=== PATIENT | female | born 1960 | race Caucasian/White ===

== ENCOUNTER → 2017-07-27 | Outpatient (POV) | payer MEDICARE, OTHER, MEDICAID, SELFPAY | PROVIDERS: Visit Provider Podiatrist ==

== ENCOUNTER 2017-08-08 13:00 | Outpatient (RCR) | payer MEDICARE, OTHER, MEDICAID, SELFPAY | END 2017-08-17 | LOC: PT 13:00 | PROVIDERS: PCP Internal Medicine Adolescent Medicine; Visit Provider Internal Medicine Adolescent Medicine | DX: R29.6 Repeated falls (principal); R27.0 Ataxia, unspecified; M62.81 Muscle weakness (generalized) | CPT/HCPCS: G8978; G8979; G8980; 97110; 97112; 97140; 97163 ==

== ENCOUNTER → 2017-08-10 | Outpatient (POV) | payer MEDICARE, OTHER, MEDICAID, SELFPAY | PROVIDERS: Visit Provider Podiatrist ==

== ENCOUNTER → 2017-09-14 14:21 | Outpatient (CLI) | payer MEDICARE, OTHER, MEDICAID, SELFPAY ==
[2017-09-14 15:03] LABS: Basophils # 0.1 K/mm3 (0-0.2); Basophils % 1.4 % (0.1-2.0); Eosinophils # 0.1 K/mm3 (0.0-0.4); Eosinophils % 2.5 % (0.1-12.0); Hematocrit 48.6 % (37.0-47.0); Hemoglobin 15.4 g/dL (12.2-16.2); Lymphocytes % 34.7 K/mm3 (10-50); Mean Corpuscular HGB Conc 31.7 g/dL (31.8-35.4); Mean Corpuscular Hemoglobin 31.7 pg (27.0-31.2); Mean Corpuscular Volume 99.8 fl (81-99); Mean Platelet Volume 8.4 fl (7.4-10.4); Monocytes # 0.2 K/mm3 (0.1-1.0); Monocytes % 4.1 % (1.7-9.3); Neutrophils # 3.4 K/mm3 (1.8-7.8); Neutrophils % 57.3 % (37.0-80.0); Platelet Count 229 K/mm3 (142-424); Red Blood Count 4.87 M/mm3 (4.20-5.40); Red Cell Distribution Width 14.2 % (11.5-17.5); White Blood Count 5.9 K/mm3 (4.8-10.8)
[2017-09-14 17:27] LABS: Alanine Aminotransferase 33 U/L (12-78); Albumin Level 3.7 gm/dL (3.4-5.0); Alkaline Phosphatase 115 U/L (46-116); Anion Gap 10.4 mEq/L (5-15); Aspartate Amino Transferase 30 U/L (15-37); Bilirubin,Total 0.6 mg/dL (0.2-1.0); Blood Urea Nitrogen 16 mg/dL (7-18); Calcium 9.1 mg/dL (8.5-10.1); Carbon Dioxide 31 mmol/L (21.0-32.0); Chloride 106 mmol/L (98-107); Chol/HDL Ratio 3.5 (1-3.5); Cholesterol 181 mg/dL (140-200); Creatinine,Serum 0.75 mg/dL (0.55-1.02); Estimated Glomerular Filt Rate 79 ml/min (>60); Free Thyroxine Index 2.2 ug/dL (5.93-13.13); GFR (African American) 96 ML/MIN (>60); Globulin 3.6 gm/dl (1.3-3.2); Glucose 90 mg/dL (74-106); HDL Cholesterol 52 mg/dL (29-89); LDL Cholesterol 108 mg/dL (0-130); Potassium 4.4 mmoL/L (3.5-5.1); Sodium 143 mmol/L (136-145); T4 (Thyroxine) 6.5 ug/dl (4.7-13.3); Thyroid Stimulating Hormone 1.65 uIU/ml (0.358-3.740); Total Protein,Serum 7.3 gm/dL (6.4-8.2); Triglycerides 105 mg/dL (30-200); Triiodothryronine (T3) Uptake 34 % (31-39); VLDL Cholesterol 21 mg/dL (0-40)
== END ==
PROVIDERS: PCP Internal Medicine Adolescent Medicine; Visit Provider Internal Medicine Adolescent Medicine
DX: E78.5 Hyperlipidemia, unspecified (principal); E03.9 Hypothyroidism, unspecified; G25.0 Essential tremor
CPT/HCPCS: 36415; 80053; 80061; 84436; 84443; 84479; 85025

== ENCOUNTER 2017-10-05 14:00 | Outpatient (RCR) | payer MEDICARE, OTHER, MEDICAID, SELFPAY | END 2017-10-05 14:01 | disposition home or self-care (01) | LOC: PT 14:00 | PROVIDERS: PCP Internal Medicine Adolescent Medicine; Visit Provider Internal Medicine Adolescent Medicine | DX: R29.6 Repeated falls (principal); R27.0 Ataxia, unspecified; M62.81 Muscle weakness (generalized) | CPT/HCPCS: 97110; 97112; 97140 ==

== ENCOUNTER → 2018-01-09 09:38 | Outpatient (CLI) | payer MEDICARE, OTHER, MEDICAID, SELFPAY ==
--- NOTE | 2018-01-09 09:41 | US_ITS ---
US abdomen complete HISTORY: Abdominal pain ITS.REASON: ULCERATIVE COLITIS, DOWN SYNDROME, AUNTOIMMUNE HEPATITIS ORDERING PHYSICIAN: Luciana Rees PATIENT AGE: 57 years COMPARISON: None FINDINGS: PANCREAS:Unremarkable. No obvious mass or abnormal fluid collection. No ductal dilatation LIVER:No focal liver lesions demonstrated. Homogeneous echogenicity. No intrahepatic biliary ductal dilatation evident. There is appropriate direction of blood flow within the portal vein which does not appear dilated RIGHT KIDNEY:Unremarkable. Normal size and echogenicity. No hydronephrosis LEFT KIDNEY:Unremarkable. No hydronephrosis. Normal size and echogenicity. GALLBLADDER:No gallstones, gallbladder wall thickening, pericholecystic fluid, or biliary dilatation. AORTA:No evidence of aneurysmal dilatation. SPLEEN:Unremarkable. Normal size and echogenicity ASCITES:None demonstrated. IMPRESSION: Unremarkable abdominal ultrasound
== END ==
PROVIDERS: PCP Internal Medicine Adolescent Medicine; Visit Provider Internal Medicine Gastroenterology
DX: K51.90 Ulcerative colitis, unspecified, without complications (principal); K75.4 Autoimmune hepatitis; Q90.9 Down syndrome, unspecified
CPT/HCPCS: 76700

== ENCOUNTER → 2018-01-29 10:04 | Outpatient (CLI) | payer MEDICARE, OTHER, MEDICAID, SELFPAY | PROVIDERS: PCP Internal Medicine Adolescent Medicine; Visit Provider Internal Medicine Adolescent Medicine | DX: R40.4 Transient alteration of awareness (principal) | CPT/HCPCS: 95816 ==

== ENCOUNTER 2018-02-23 11:26 | Inpatient (IN) ==
[2018-02-23 12:25] LABS: Basophils % 0.3 % (0.1-2.0); Eosinophils % 0.1 % (0.1-12.0); Hematocrit 43.1 % (37.0-47.0); Hemoglobin 14.9 g/dL (12.2-16.2); Lymphocytes # 1.1 K/mm3 (0.7-4.5); Lymphocytes % 14.7 K/mm3 (10-50); Mean Corpuscular HGB Conc 34.7 g/dL (31.8-35.4); Mean Corpuscular Hemoglobin 34.7 pg (27.0-31.2); Mean Corpuscular Volume 100.2 fl (81-99); Mean Platelet Volume 8.1 fl (7.4-10.4); Monocytes # 0.3 K/mm3 (0.1-1.0); Neutrophils # 6.1 K/mm3 (1.8-7.8); Neutrophils % 80.8 % (37.0-80.0); Platelet Count 234 K/mm3 (142-424); Red Cell Distribution Width 13.2 % (11.5-17.5); White Blood Count 7.6 K/mm3 (4.8-10.8)
[2018-02-23 12:39] LABS: Alanine Aminotransferase 45 U/L (12-78); Albumin Level 3.2 gm/dL (3.4-5.0); Albumin/Globulin Ratio 0.7 (1.1-1.8); Alkaline Phosphatase 163 U/L (46-116); Anion Gap 10.1 mEq/L (5-15); Aspartate Amino Transferase 24 U/L (15-37); Bilirubin,Total 0.6 mg/dL (0.2-1.0); Blood Urea Nitrogen 17 mg/dL (7-18); Calcium 8.9 mg/dL (8.5-10.1); Carbon Dioxide 29 mmol/L (21.0-32.0); Chloride 105 mmol/L (98-107); Globulin 4.3 gm/dl (1.3-3.2); Glucose 133 mg/dL (74-106); Potassium 4.1 mmoL/L (3.5-5.1); Sodium 140 mmol/L (136-145); Total Protein,Serum 7.5 gm/dL (6.4-8.2)
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
[2018-02-23 14:21] LABS: Microscopic, Urine URINE MICROSCOPIC (MICROSCOPIC)
[2018-02-23 14:35] LABS: Appearance,Urine SL CLOUDY (Clear); Bilirubin,Urine Negative (Negative); Blood, Urine Negative (Negative); Color,Urine YELLOW (Yellow); Glucose,Urine (UA) Negative (Negative); Ketones,Urine Negative (Negative); Leukocyte Esterase,Urine Negative (Negative); PH,Urine 6.5 (5.0-8.5); Protein,Urine Negative (Negative); Specific Gravity, Urine <= 1.005 (1.005-1.030); Urobilinogen,Urine 0.2 EU/dl (0.2)
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
[2018-02-23 15:00] LABS: Bacteria,Urine Trace /lpf; Squamous Epithelial Cell,Urine Occasional #/hpf (0-5); WBC,Urine Occasional #/hpf (0-3)
--- NOTE | 2018-02-23 16:53 | Operative Note ---
Date of procedure: 02/23/18 Pre-op Diagnosis:: Small bowel obstruction Post-op Diagnosis:: Same Procedure performed:: Exploratory laparotomy with extensive adhesiolysis Surgeon:: Jean Tidwell MD AURICULAR THERAPIST:: Edi Faulkner Anesthesia: GETA Estimated blood loss (mL): 25 Operative findings:: Dense adhesions with "volvulus-type" defect along distal small bowel (distal small bowel essentially "wrapped" around adhesion) Distal small bowel with "inflammatory-like" discoloration No sign of definitive ischemia Affected small bowel continued to show peristalsis and had palpable pulse Operative note:: After informed consent was obtained, the patient was taken to the operating room and placed in the supine position. General anesthesia was induced and her abdomen was prepped and draped in a sterile fashion. A midline laparotomy incision was made with scalpel. A combination of scalpel, blunt dissection, and electrocautery was utilized to transect through the deeper subcutaneous tissue. The fascia was entered just below the umbilicus. Careful evaluation revealed distended small bowel. The small bowel was elevated. An area of distal small bowel was essentially "wrapped around" an adhesive band creating a "volvulus--type" defect. The affected small bowel showed some inflammatory changes of the serosa, but no ischemic type changes were seen. Peristalsis was noted. Palpable pulse noted. Complex/dense adhesions throughout the abdominal cavity were noted. The adhesions were between small bowel/small bowel, small bowel/colon, small bowel/abdominal wall, and small bowel/omentum. Complicated adhesio lysis completed by way of electrocautery, Metzenbaum scissor dissection , and blunt dissection. The patient has had 2 prior small bowel anastomoses and these were deemed viable. The most distal anastomosis was at the proximal margin of the affected small bowel. The small bowel was run completely and no ischemic type changes were noted. No sign of perforation noted. Fascia was closed with #1 Novafil in a running manner. Colbert were utilized to close skin and a sterile dressing was applied. Condition: stable Disposition: PACU Specimens:: None Complications:: No immediate
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
--- NOTE | 2018-02-23 17:45 | Progress Note ---
[facility] Anesthesia Record Part II Discharge Time: 17:35 Destination: 2nd floor PACU nurse assessment reviewed?: Yes Patient Condition:: Good Anesthesia Complications:: None
--- NOTE | 2018-02-23 17:45 | Progress Note ---
[facility] Anesthesia Record Part I Intake, IV Amount: 1,400 Estimated blood loss (mL): 25 Urine output (mL): 300 Blood Pressure: 131/54 SaO2: 100 Pulse Rate: 77 Respiratory Rate: 16 Temperature: 97.4 F Patient is:: Drowsy, Stable Stable to PACU at:: 17:05
[2018-02-24 06:39] LABS: Basophils % 0.3 % (0.1-2.0); Eosinophils % 0.2 % (0.1-12.0); Hematocrit 34.6 % (37.0-47.0); Lymphocytes # 1.4 K/mm3 (0.7-4.5); Lymphocytes % 17.8 K/mm3 (10-50); Mean Corpuscular HGB Conc 35.4 g/dL (31.8-35.4); Mean Corpuscular Volume 101.8 fl (81-99); Mean Platelet Volume 8.4 fl (7.4-10.4); Monocytes # 0.4 K/mm3 (0.1-1.0); Monocytes % 4.9 % (1.7-9.3); Neutrophils # 5.8 K/mm3 (1.8-7.8); Neutrophils % 76.7 % (37.0-80.0); Platelet Count 171 K/mm3 (142-424); Red Cell Distribution Width 13.4 % (11.5-17.5); White Blood Count 7.6 K/mm3 (4.8-10.8)
[2018-02-24 06:41] LABS: Hemoglobin 12.2 g/dL (12.2-16.2)
--- NOTE | 2018-02-24 06:46 | Progress Note ---
Internal Medicine - PN: Subj *Date: 02/24/18 *Time: 06:46 Interval history: Patient has done well overnight. After some low blood pressure postoperatively which was treated with a fluid bolus and maintenance fluids at 150 mL's per hour patient's blood pressure is improved. She has received pain medication overnight. For the most part she has slept since surgery. Exam Vital signs and Labs for Last 24 Hours: Temp Pulse Resp BP Pulse Ox 98.1 F 56 L 16 84/44 98 02/24/18 05:00 02/24/18 05:30 02/24/18 05:30 02/24/18 05:30 02/24/18 05:30 Laboratory Results - last 24 hr 02/23/18 11:41: Urine Color Yellow, Urine Appearance Sl cloudy, Urine pH 6.5, Ur Specific [place] <= 1.005, Urine Protein Negative, Urine Glucose (UA) Negative, Urine Ketones Negative, Urine Blood Negative, Urine Nitrate Negative, Urine Bilirubin Negative, Urine Urobilinogen 0.2, Ur Leukocyte Esterase Negative , Urine WBC Occasional, Ur Squamous Epith Cells Occasional, Urine Bacteria Trace 02/23/18 12:15: WBC 7.6, RBC 4.30, Hgb 14.9, Hct 43.1, MCV 100.2 H, MCH 34.7 H, MCHC 34.7, RDW 13.2, Plt Count 234, MPV 8.1, Neut % (Auto) 80.8 H, Lymph % (Auto ) 14.7, [place] % (Auto) 4.0, Eos % (Auto) 0.1, Baso % (Auto) 0.3, Neut # (Auto) 6.1, Lymph # (Auto) 1.1, [place] # (Auto) 0.3, Eos # (Auto) 0.0, Baso # (Auto) 0.0 02/23/18 12:15: Sodium 140, Potassium 4.1, Chloride 105, Carbon Dioxide 29, Anion Gap 10.1, BUN 17, Creatinine 0.90, Estimated GFR 64, Est GFR ( Amer ) 78, Glucose 133 H, Calcium 8.9, Total Bilirubin 0.6, AST 24, ALT 45, Alkaline Phosphatase 163 H, Total Protein 7.5, Albumin 3.2 L, Globulin 4.3 H, Albumin/ Globulin Ratio 0.7 L 02/23/18 12:15: Lactic Acid 1.8 02/24/18 06:05: WBC 7.6, RBC 3.40 L, Hgb 12.2 D, Hct 34.6 L, MCV 101.8 H, MCH 36.0 H, MCHC 35.4, RDW 13.4, Plt Count 171 D, MPV 8.4, Neut % (Auto) 76.7, Lymph % (Auto) 17.8, [place] % (Auto) 4.9, Eos % (Auto) 0.2, Baso % (Auto) 0.3, Neut # (Auto) 5.8, Lymph # (Auto) 1.4, [place] # (Auto) 0.4, Eos # (Auto) 0.0, Baso # (Auto) 0.0 I & O for Last 24 hours: Intake & Output 02/21/18 02/22/18 02/23/18 02/24/18 11:59 11:59 11:59 11:59 Intake Total 1400 / 1400 Output Total 900 / 900 Balance 500 / 500 Weight 140 lb 3 oz Narrative: Patient appears comfortable and in no distress. During examination she began to awaken and open her eyes. Lungs were clear. Heart had a regular rate and rhythm. Abdomen was soft, bowel sounds are absent Assessment and Plan (1) Gastroenteritis Current visit: Yes Status: Acute Category: Medical Code(s): K52.9 - Noninfective gastroenteritis and colitis, unspecified (2) Lower abdominal pain Current visit: Yes Status: Acute Category: Medical Code(s): R10.30 - Lower abdominal pain, unspecified (3) Down syndrome Current visit: Yes Status: Chronic Category: Medical Code(s): Q90.9 - Down syndrome, unspecified (4) Small bowel volvulus Current visit: Yes Status: Acute Category: Surgical Code(s): K56.2 - Volvulus - Assessment and plan all Dx Assessment and Plan for all problems:: No change in care at this time. Continue postoperative management.
[2018-02-24 06:50] LABS: Anion Gap 7.3 mEq/L (5-15); Potassium 3.3 mmoL/L (3.5-5.1)
[2018-02-24 06:57] LABS: Calcium 7.7 mg/dL (8.5-10.1)
--- NOTE | 2018-02-24 08:22 | Progress Note ---
Subjective Patient reports: other (resting) Exam Vital signs and Labs for Last 24 Hours: Temp Pulse Resp BP Pulse Ox 98.3 F 54 L 18 95/48 100 02/24/18 08:00 02/24/18 08:00 02/24/18 08:00 02/24/18 08:00 02/24/18 08:00 Laboratory Results - last 24 hr 02/23/18 11:41: Urine Color Yellow, Urine Appearance Sl cloudy, Urine pH 6.5, Ur Specific [place] <= 1.005, Urine Protein Negative, Urine Glucose (UA) Negative, Urine Ketones Negative, Urine Blood Negative, Urine Nitrate Negative, Urine Bilirubin Negative, Urine Urobilinogen 0.2, Ur Leukocyte Esterase Negative , Urine WBC Occasional, Ur Squamous Epith Cells Occasional, Urine Bacteria Trace 02/23/18 12:15: WBC 7.6, RBC 4.30, Hgb 14.9, Hct 43.1, MCV 100.2 H, MCH 34.7 H, MCHC 34.7, RDW 13.2, Plt Count 234, MPV 8.1, Neut % (Auto) 80.8 H, Lymph % (Auto ) 14.7, [place] % (Auto) 4.0, Eos % (Auto) 0.1, Baso % (Auto) 0.3, Neut # (Auto) 6.1, Lymph # (Auto) 1.1, [place] # (Auto) 0.3, Eos # (Auto) 0.0, Baso # (Auto) 0.0 02/23/18 12:15: Sodium 140, Potassium 4.1, Chloride 105, Carbon Dioxide 29, Anion Gap 10.1, BUN 17, Creatinine 0.90, Estimated GFR 64, Est GFR ( Amer ) 78, Glucose 133 H, Calcium 8.9, Total Bilirubin 0.6, AST 24, ALT 45, Alkaline Phosphatase 163 H, Total Protein 7.5, Albumin 3.2 L, Globulin 4.3 H, Albumin/ Globulin Ratio 0.7 L 02/23/18 12:15: Lactic Acid 1.8 02/24/18 06:05: WBC 7.6, RBC 3.40 L, Hgb 12.2 D, Hct 34.6 L, MCV 101.8 H, MCH 36.0 H, MCHC 35.4, RDW 13.4, Plt Count 171 D, MPV 8.4, Neut % (Auto) 76.7, Lymph % (Auto) 17.8, [place] % (Auto) 4.9, Eos % (Auto) 0.2, Baso % (Auto) 0.3, Neut # (Auto) 5.8, Lymph # (Auto) 1.4, [place] # (Auto) 0.4, Eos # (Auto) 0.0, Baso # (Auto) 0.0 02/24/18 06:05: Sodium 147 H, Potassium 3.3 L, Chloride 113 H, Carbon Dioxide 30 , Anion Gap 7.3, BUN 13, Creatinine 0.70 D, Estimated Creat Clear 88, Estimated GFR 86, Est GFR ( Amer) 104 D, Glucose 94 D, Calcium 7.7 L D 02/24/18 06:05: Lactic Acid 0.6 I & O for Last 24 hours: Intake & Output 02/21/18 02/22/18 02/23/18 02/24/18 11:59 11:59 11:59 11:59 Intake Total 3567 / 3567 Output Total 1875 / 1875 Balance 1692 / 1692 Weight 140 lb 3 oz Narrative: required 1L bolus overnight due to low SBP - Constitutional no acute distress - *Routine Respiratory Exam Absent: respiratory distress - *Routine Abdominal Exam Present: soft Comments: dressing intact no erythema Progress Note: A&P (1) Gastroenteritis Status: Acute Current Visit: Yes (2) Lower abdominal pain Status: Acute Current Visit: Yes (3) Down syndrome Status: Chronic Current Visit: Yes (4) Small bowel volvulus Status: Acute Assessment and plan: Overall, doing well s/p ex-lap with adhesiolysis NG for now Continue spivey for now due to need for accurate I&Os PT consult Current Visit: Yes
--- NOTE | 2018-02-24 14:01 | Pharmacy Consult Notes ---
[facility] Pharmacy VTE Monitoring - Patient Demographics Admission date: 02/24/18 Report Date: 02/24/18 Time: 14:01 Allergies/Adverse Reactions: Patient Allergies minocycline [MINOCYCLINE] Allergy (Unknown, Verified 02/23/18 21:13) Height: 1.52 m Weight: 63.588 kg Patient Problems: Current Active Problems Gastroenteritis (Acute) Lower abdominal pain (Acute) Down syndrome (Chronic) Small bowel volvulus (Acute) - VTE Risk Labs: VTE Related Lab Results Hgb 12.2 g/dL (12.2-16.2) D 02/24/18 06:05 Hct 34.6 % (37.0-47.0) L 02/24/18 06:05 Plt Count 171 K/mm3 (142-424) D 02/24/18 06:05 BUN 13 mg/dL (7-18) 02/24/18 06:05 Creatinine 0.70 mg/dL (0.55-1.02) D 02/24/18 06:05 Estimated Creat Clear 88 mL/min (0-300) 02/24/18 06:05 Was VTE Risk Assessment Performed: Yes VTE Score: 3 VTE Risk Level: Low Risk - Prophylaxis Types of VTE Prophylaxis: TEDS Thigh High, TEDS Knee High (GODFREY HOSE ORDERED) Location of Applied Device: Bilateral Lower Extremeties
--- NOTE | 2018-02-25 06:23 | Progress Note ---
Subjective Patient reports: other (resting) Exam Vital signs and Labs for Last 24 Hours: Temp Pulse Resp BP Pulse Ox 97.6 F 52 L 18 102/53 92 L 02/25/18 04:00 02/25/18 04:00 02/25/18 04:00 02/25/18 04:00 02/25/18 04:00 Laboratory Results - last 24 hr 02/24/18 06:05: WBC 7.6, RBC 3.40 L, Hgb 12.2 D, Hct 34.6 L, MCV 101.8 H, MCH 36.0 H, MCHC 35.4, RDW 13.4, Plt Count 171 D, MPV 8.4, Neut % (Auto) 76.7, Lymph % (Auto) 17.8, [place] % (Auto) 4.9, Eos % (Auto) 0.2, Baso % (Auto) 0.3, Neut # (Auto) 5.8, Lymph # (Auto) 1.4, [place] # (Auto) 0.4, Eos # (Auto) 0.0, Baso # (Auto) 0.0 02/24/18 06:05: Sodium 147 H, Potassium 3.3 L, Chloride 113 H, Carbon Dioxide 30 , Anion Gap 7.3, BUN 13, Creatinine 0.70 D, Estimated Creat Clear 88, Estimated GFR 86, Est GFR ( Amer) 104 D, Glucose 94 D, Calcium 7.7 L D 02/24/18 06:05: Lactic Acid 0.6 I & O for Last 24 hours: Intake & Output 02/22/18 02/23/18 02/24/18 02/25/18 11:59 11:59 11:59 11:59 Intake Total 3567 / 3567 2783 / 2783 Output Total 1875 / 1875 600 / 600 Balance 1692 / 1692 2183 / 2183 Weight 140 lb 3 oz 140 lb 3 oz - Constitutional no acute distress - *Routine Respiratory Exam Absent: respiratory distress Progress Note: A&P (1) Gastroenteritis Status: Acute Current Visit: Yes (2) Lower abdominal pain Status: Acute Current Visit: Yes (3) Down syndrome Status: Chronic Current Visit: Yes (4) Small bowel volvulus Status: Acute Assessment and plan: overall, doing fairly well POD2 s/p ex-lap with CRISTHIAN f/u AM labs PT consult pending continue NG for now d/c allyssa Current Visit: Yes
[2018-02-25 06:27] LABS: Basophils # 0.1 K/mm3 (0-0.2); Basophils % 0.7 % (0.1-2.0); Eosinophils % 0.6 % (0.1-12.0); Hematocrit 40.2 % (37.0-47.0); Hemoglobin 12.3 g/dL (12.2-16.2); Lymphocytes # 1.2 K/mm3 (0.7-4.5); Mean Corpuscular HGB Conc 30.5 g/dL (31.8-35.4); Mean Corpuscular Hemoglobin 31.2 pg (27.0-31.2); Mean Corpuscular Volume 102.3 fl (81-99); Mean Platelet Volume 8.3 fl (7.4-10.4); Monocytes # 0.5 K/mm3 (0.1-1.0); Monocytes % 6.4 % (1.7-9.3); Neutrophils # 5.4 K/mm3 (1.8-7.8); Neutrophils % 75.3 % (37.0-80.0); Platelet Count 164 K/mm3 (142-424); Red Blood Count 3.93 M/mm3 (4.20-5.40); Red Cell Distribution Width 13.1 % (11.5-17.5); White Blood Count 7.1 K/mm3 (4.8-10.8)
[2018-02-25 06:36] LABS: Anion Gap 7.5 mEq/L (5-15); Calcium 7.9 mg/dL (8.5-10.1); Potassium 3.5 mmoL/L (3.5-5.1)
--- NOTE | 2018-02-25 08:36 | Progress Note ---
Internal Medicine - PN: Subj *Date: 02/25/18 *Time: 08:34 Interval history: Events of yesterday noted vis--vis surgery and NG tube placement. Some concern about coughing this morning. Will he is concerned about mobility issues. Brewer catheter was removed yesterday. NG tube still in place. Discussed case personally with surgery service. Exam Vital signs and Labs for Last 24 Hours: Temp Pulse Resp BP Pulse Ox 97.7 F 56 L 18 127/71 95 02/25/18 08:00 02/25/18 08:00 02/25/18 08:00 02/25/18 08:00 02/25/18 08:00 Laboratory Results - last 24 hr 02/25/18 05:55: WBC 7.1, RBC 3.93 L, Hgb 12.3, Hct 40.2, MCV 102.3 H, MCH 31.2, MCHC 30.5 L, RDW 13.1, Plt Count 164, MPV 8.3, Neut % (Auto) 75.3, Lymph % (Auto ) 17.0, [place] % (Auto) 6.4, Eos % (Auto) 0.6, Baso % (Auto) 0.7, Neut # (Auto) 5.4, Lymph # (Auto) 1.2, [place] # (Auto) 0.5, Eos # (Auto) 0.0, Baso # (Auto) 0.1 02/25/18 05:55: Sodium 143, Potassium 3.5, Chloride 112 H, Carbon Dioxide 27, Anion Gap 7.5, BUN 7 D, Creatinine 0.64, Estimated Creat Clear 96, Estimated GFR 95, Est GFR ( Amer) 115, Glucose 123 H D, Calcium 7.9 L I & O for Last 24 hours: Intake & Output 02/22/18 02/23/18 02/24/18 02/25/18 11:59 11:59 11:59 11:59 Intake Total 3567 / 3567 2783 / 2783 Output Total 1875 / 1875 700 / 700 Balance 1692 / 1692 2083 / 2083 Weight 140 lb 3 oz 140 lb 3 oz Narrative: Patient is sleeping, when awakened is cooperative, nonverbal. NG tube in left nostril. Lungs in the anterior daugherty are clear, excellent air movement, posterior lung daugherty are also clear. Heart rate regular. Abdominal exam deferred to surgery. Assessment and Plan (1) Gastroenteritis Current visit: Yes Status: Acute Category: Medical Code(s): K52.9 - Noninfective gastroenteritis and colitis, unspecified (2) Lower abdominal pain Current visit: Yes Status: Acute Category: Medical Code(s): R10.30 - Lower abdominal pain, unspecified (3) Down syndrome Current visit: Yes Status: Chronic Category: Medical Code(s): Q90.9 - Down syndrome, unspecified (4) Small bowel volvulus Current visit: Yes Status: Acute Category: Surgical Code(s): K56.2 - Volvulus - Assessment and plan all Dx Assessment and Plan for all problems:: Surgical status reviewed. Continue current surgical care. Pulmonary status seems stable. PT/OT evaluation for mobility assistance and safety evaluation.
[2018-02-26 06:28] LABS: Basophils % 0.6 % (0.1-2.0); Eosinophils # 0.1 K/mm3 (0.0-0.4); Eosinophils % 1.9 % (0.1-12.0); Hematocrit 38.8 % (37.0-47.0); Hemoglobin 12.3 g/dL (12.2-16.2); Lymphocytes # 1.3 K/mm3 (0.7-4.5); Lymphocytes % 18.8 K/mm3 (10-50); Mean Corpuscular HGB Conc 31.7 g/dL (31.8-35.4); Mean Corpuscular Hemoglobin 31.9 pg (27.0-31.2); Mean Corpuscular Volume 100.4 fl (81-99); Mean Platelet Volume 8.7 fl (7.4-10.4); Monocytes # 0.4 K/mm3 (0.1-1.0); Monocytes % 5.1 % (1.7-9.3); Neutrophils # 5.1 K/mm3 (1.8-7.8); Neutrophils % 73.5 % (37.0-80.0); Platelet Count 181 K/mm3 (142-424); Red Blood Count 3.86 M/mm3 (4.20-5.40); Red Cell Distribution Width 12.9 % (11.5-17.5)
[2018-02-26 06:37] LABS: Anion Gap 8.6 mEq/L (5-15); Calcium 7.9 mg/dL (8.5-10.1); Potassium 3.6 mmoL/L (3.5-5.1)
--- NOTE | 2018-02-26 08:02 | Progress Note ---
Internal Medicine - PN: Subj *Date: 02/26/18 *Time: 07:15 Interval history: Patient resting in bed, appears comfortable. She was up out of bed most of the day yesterday. Patient is alert, cooperative, nonverbal. NG tube in left nostril. Lungs in the anterior daugherty with loose rhonchi on right, excellent air movement. Heart rate regular. Abdominal exam deferred to surgery. Exam Vital signs and Labs for Last 24 Hours: Temp Pulse Resp BP Pulse Ox 97.6 F 59 L 18 108/78 93 L 02/26/18 04:00 02/26/18 04:00 02/26/18 04:00 02/26/18 04:00 02/26/18 04:00 Laboratory Results - last 24 hr 02/26/18 06:14: WBC 7.0, RBC 3.86 L, Hgb 12.3, Hct 38.8, MCV 100.4 H, MCH 31.9 H , MCHC 31.7 L, RDW 12.9, Plt Count 181, MPV 8.7, Neut % (Auto) 73.5, Lymph % ( Auto) 18.8, [place] % (Auto) 5.1, Eos % (Auto) 1.9, Baso % (Auto) 0.6, Neut # (Auto ) 5.1, Lymph # (Auto) 1.3, [place] # (Auto) 0.4, Eos # (Auto) 0.1, Baso # (Auto) 0.0 02/26/18 06:14: Sodium 141, Potassium 3.6, Chloride 110 H, Carbon Dioxide 26, Anion Gap 8.6, BUN 3 L D, Creatinine 0.55, Estimated Creat Clear 112, Estimated GFR 114, Est GFR ( Amer) 137, Glucose 124 H, Calcium 7.9 L I & O for Last 24 hours: Intake & Output 02/23/18 02/24/18 02/25/18 02/26/18 11:59 11:59 11:59 11:59 Intake Total 3567 / 3567 2783 / 2783 1250 / 1250 Output Total 1875 / 1875 800 / 800 750 / 750 Balance 1692 / 1692 1982 / 1982 500 / 500 Weight 140 lb 3 oz 140 lb 3 oz 140 lb 3.001 oz Assessment and Plan (1) Gastroenteritis Current visit: Yes Status: Acute Category: Medical Code(s): K52.9 - Noninfective gastroenteritis and colitis, unspecified (2) Lower abdominal pain Current visit: Yes Status: Acute Category: Medical Code(s): R10.30 - Lower abdominal pain, unspecified (3) Down syndrome Current visit: Yes Status: Chronic Category: Medical Code(s): Q90.9 - Down syndrome, unspecified (4) Small bowel volvulus Current visit: Yes Status: Acute Category: Surgical Code(s): K56.2 - Volvulus - Assessment and plan all Dx Assessment and Plan for all problems:: Will repeat lung exam once she is up out of bed as rhonchi may be transmitted upper airway sounds from her supine position. If rhonchi persists will obtain CXR this afternoon. Surgery recommendations to follow.
--- NOTE | 2018-02-26 08:12 | Progress Note ---
Subjective Patient reports: other (POD3: resting. ambulated and "worked with PT" yesterday.) Exam Vital signs and Labs for Last 24 Hours: Temp Pulse Resp BP Pulse Ox 98.3 F 66 20 97/51 92 L 02/26/18 07:58 02/26/18 07:58 02/26/18 07:58 02/26/18 07:58 02/26/18 07:58 Laboratory Results - last 24 hr 02/26/18 06:14: WBC 7.0, RBC 3.86 L, Hgb 12.3, Hct 38.8, MCV 100.4 H, MCH 31.9 H , MCHC 31.7 L, RDW 12.9, Plt Count 181, MPV 8.7, Neut % (Auto) 73.5, Lymph % ( Auto) 18.8, [place] % (Auto) 5.1, Eos % (Auto) 1.9, Baso % (Auto) 0.6, Neut # (Auto ) 5.1, Lymph # (Auto) 1.3, [place] # (Auto) 0.4, Eos # (Auto) 0.1, Baso # (Auto) 0.0 02/26/18 06:14: Sodium 141, Potassium 3.6, Chloride 110 H, Carbon Dioxide 26, Anion Gap 8.6, BUN 3 L D, Creatinine 0.55, Estimated Creat Clear 112, Estimated GFR 114, Est GFR ( Amer) 137, Glucose 124 H, Calcium 7.9 L I & O for Last 24 hours: Intake & Output 02/23/18 02/24/18 02/25/18 02/26/18 11:59 11:59 11:59 11:59 Intake Total 3567 / 3567 2783 / 2783 1250 / 1250 Output Total 1875 / 1875 800 / 800 750 / 750 Balance 1692 / 1692 1982 / 1982 500 / 500 Weight 140 lb 3 oz 140 lb 3 oz 140 lb 3.001 oz - Constitutional no acute distress - *Routine Abdominal Exam Present: soft Comments: incision c/d/i. no spreading cellulitis. Progress Note: A&P (1) Gastroenteritis Status: Acute Current Visit: Yes (2) Lower abdominal pain Status: Acute Current Visit: Yes (3) Down syndrome Status: Chronic Current Visit: Yes (4) Small bowel volvulus Status: Acute Assessment and plan: continue NG/NPO/IVFs for now continue PT likely to begin "drain bag trials" for NG within 24-48hours Current Visit: Yes
--- NOTE | 2018-02-27 06:55 | Progress Note ---
Subjective Patient reports: other (resting. small amount of flatus yesterday per sister.) Exam Vital signs and Labs for Last 24 Hours: Temp Pulse Resp BP Pulse Ox 98.5 F 68 18 118/68 96 02/27/18 04:00 02/27/18 04:00 02/27/18 04:00 02/27/18 04:00 02/27/18 04:00 Laboratory Results - last 24 hr 02/26/18 06:14: Sodium 141, Potassium 3.6, Chloride 110 H, Carbon Dioxide 26, Anion Gap 8.6, BUN 3 L D, Creatinine 0.55, Estimated Creat Clear 112, Estimated GFR 114, Est GFR ( Amer) 137, Glucose 124 H, Calcium 7.9 L I & O for Last 24 hours: Intake & Output 02/24/18 02/25/18 02/26/18 02/27/18 11:59 11:59 11:59 11:59 Intake Total 3567 / 3567 2783 / 2783 1250 / 1250 0 / 0 Output Total 1875 / 1875 800 / 800 750 / 750 Balance 1692 / 1692 1982 / 1982 500 / 500 0 / 0 Weight 140 lb 3 oz 140 lb 3 oz 140 lb 3.001 oz - Constitutional no acute distress - *Routine Abdominal Exam Present: soft Comments: incision c/d/i Progress Note: A&P (1) Gastroenteritis Status: Acute Current Visit: Yes (2) Lower abdominal pain Status: Acute Current Visit: Yes (3) Down syndrome Status: Chronic Current Visit: Yes (4) Small bowel volvulus Status: Acute Assessment and plan: stable s/p ex-lap with CRISTHIAN NG to drain IVFs to 75 chips and sips Current Visit: Yes
--- NOTE | 2018-02-27 08:11 | Progress Note ---
Internal Medicine - PN: Subj *Date: 02/27/18 *Time: 08:10 Interval history: Patient did well overnight in regards to advancing her bowel movements with a couple of small bowel movements and some flatulence. No vomiting. NG tube still in place. Sister reported poor sleep, lots of twitching and awakenings-of note she is not using her CPAP. Also has lots of urinary frequency. Exam Vital signs and Labs for Last 24 Hours: Temp Pulse Resp BP Pulse Ox 98.4 F 53 L 18 115/48 100 02/27/18 07:41 02/27/18 07:41 02/27/18 07:41 02/27/18 07:41 02/27/18 07:41 I & O for Last 24 hours: Intake & Output 02/24/18 02/25/18 02/26/18 02/27/18 11:59 11:59 11:59 11:59 Intake Total 3567 / 3567 2783 / 2783 1250 / 1250 0 / 0 Output Total 1875 / 1875 800 / 800 750 / 750 Balance 1692 / 1692 1982 / 1982 500 / 500 0 / 0 Weight 140 lb 3 oz 140 lb 3 oz 140 lb 3.001 oz Narrative: Patient's pleasant, not really talkative this morning. Lungs have rhonchi but better air movement than yesterday. Abdomen soft. Please see surgical notes. No edema noted. G-tube in left nostril. Assessment and Plan (1) Gastroenteritis Current visit: Yes Status: Acute Category: Medical Code(s): K52.9 - Noninfective gastroenteritis and colitis, unspecified (2) Lower abdominal pain Current visit: Yes Status: Acute Category: Medical Code(s): R10.30 - Lower abdominal pain, unspecified (3) Down syndrome Current visit: Yes Status: Chronic Category: Medical Code(s): Q90.9 - Down syndrome, unspecified (4) Small bowel volvulus Current visit: Yes Status: Acute Category: Surgical Code(s): K56.2 - Volvulus - Assessment and plan all Dx Assessment and Plan for all problems:: Agree with plan to hopefully advance to drain bag and pull NG tube. Start home medications. Trazodone for sleep. Check urinalysis. Continue antibiotics for lung infiltrate.
[2018-02-27 09:53] LABS: Microscopic, Urine URINE MICROSCOPIC (MICROSCOPIC)
[2018-02-27 09:55] LABS: Appearance,Urine CLEAR (Clear); Bilirubin,Urine Negative (Negative); Blood, Urine Negative (Negative); Color,Urine YELLOW (Yellow); Glucose,Urine (UA) Negative (Negative); Ketones,Urine Negative (Negative); Leukocyte Esterase,Urine Negative (Negative); Protein,Urine Negative (Negative); Urobilinogen,Urine 0.2 EU/dl (0.2)
[2018-02-27 10:06] LABS: Bacteria,Urine Trace /lpf; Squamous Epithelial Cell,Urine Occasional #/hpf (0-5)
--- NOTE | 2018-02-28 07:29 | Progress Note ---
Subjective Patient reports: feels better, flatus Exam Vital signs and Labs for Last 24 Hours: Temp Pulse Resp BP Pulse Ox 98.3 F 59 L 16 102/72 96 02/28/18 04:00 02/28/18 04:00 02/28/18 04:00 02/28/18 04:00 02/28/18 04:00 Laboratory Results - last 24 hr 02/27/18 09:40: Urine Color Yellow, Urine Appearance Clear, Urine pH 8.0, Ur Specific [place] 1.010, Urine Protein Negative, Urine Glucose (UA) Negative, Urine Ketones Negative, Urine Blood Negative, Urine Nitrate Negative, Urine Bilirubin Negative, Urine Urobilinogen 0.2, Ur Leukocyte Esterase Negative, Urine RBC None, Urine WBC None, Ur Squamous Epith Cells Occasional, Urine Bacteria Trace I & O for Last 24 hours: Intake & Output 02/25/18 02/26/18 02/27/18 02/28/18 11:59 11:59 11:59 11:59 Intake Total 2783 / 2783 1250 / 1250 0 / 0 844 / 844 Output Total 800 / 800 750 / 750 500 / 500 Balance 1982 / 1982 500 / 500 0 / 0 344 / 344 Weight 140 lb 3 oz 140 lb 3.001 oz - Constitutional no acute distress - *Routine Cardiovascular Exam Present: RRR - *Routine Abdominal Exam Present: soft Comments: inc c/d/i Progress Note: A&P (1) Gastroenteritis Status: Acute Current Visit: Yes (2) Lower abdominal pain Status: Acute Current Visit: Yes (3) Down syndrome Status: Chronic Current Visit: Yes (4) Small bowel volvulus Status: Acute Assessment and plan: improving s/p ex-lap with CRISTHIAN full liquids this PM possible discharge tomorrow Current Visit: Yes
--- NOTE | 2018-02-28 08:44 | Progress Note ---
Internal Medicine - PN: Subj *Date: 02/28/18 *Time: 08:44 Interval history: Sagrario is sitting up in bed drinking clear liquids. She is smiling and appears comfortable. She slept well through the night. Patient is alert, cooperative, nonverbal. Anterior daugherty are clear, excellent air movement. Heart rate regular. Abdominal exam deferred to surgery. Exam Vital signs and Labs for Last 24 Hours: Temp Pulse Resp BP Pulse Ox 98.3 F 58 L 16 121/78 99 02/28/18 08:00 02/28/18 08:00 02/28/18 08:00 02/28/18 08:00 02/28/18 08:00 Laboratory Results - last 24 hr 02/27/18 09:40: Urine Color Yellow, Urine Appearance Clear, Urine pH 8.0, Ur Specific [place] 1.010, Urine Protein Negative, Urine Glucose (UA) Negative, Urine Ketones Negative, Urine Blood Negative, Urine Nitrate Negative, Urine Bilirubin Negative, Urine Urobilinogen 0.2, Ur Leukocyte Esterase Negative, Urine RBC None, Urine WBC None, Ur Squamous Epith Cells Occasional, Urine Bacteria Trace I & O for Last 24 hours: Intake & Output 02/25/18 02/26/18 02/27/18 02/28/18 11:59 11:59 11:59 11:59 Intake Total 2783 / 2783 1250 / 1250 0 / 0 1749 / 1749 Output Total 800 / 800 750 / 750 500 / 500 Balance 1982 500 / 500 0 / 0 1249 / 1249 Weight 140 lb 3 oz 140 lb 3.001 oz Assessment and Plan (1) Gastroenteritis Current visit: Yes Status: Acute Category: Medical Code(s): K52.9 - Noninfective gastroenteritis and colitis, unspecified (2) Lower abdominal pain Current visit: Yes Status: Acute Category: Medical Code(s): R10.30 - Lower abdominal pain, unspecified (3) Down syndrome Current visit: Yes Status: Chronic Category: Medical Code(s): Q90.9 - Down syndrome, unspecified (4) Small bowel volvulus Current visit: Yes Status: Acute Category: Surgical Code(s): K56.2 - Volvulus - Assessment and plan all Dx Assessment and Plan for all problems:: Continue to slowly advance diet to full liquids. If patient continues to tolerate without nausea or pain, will consider d/c to [place] tomorrow.
--- NOTE | 2018-03-01 07:19 | Discharge Summary ---
General - General Admission date:: 02/23/18 Discharge date: 03/01/18 HPI HPI: This is a 57-year-old female seen in consultation from the service of Dr. Lerma for management of small bowel obstruction secondary to small bowel volvulus. CT scan has revealed changes consistent with moderate obstruction secondary to volvulus of the small bowel in the right lower quadrant. Please see forward a copy of HPI from admission H&P below: 57 yr old female with Down Syndrome presented to clinic this morning accompanied by her sister whom she lives with. She has had increased amount of diarrhea over the past couple of days and last night had multiple episodes of emisis and complaints of lower abdominal pain. They have not noticed any fevers and to their knowledge she has not had any contacts with illness. She has a history of rectal prolapse and frequent smearing of stool so diarrhea is difficult to quantify. Also has a history of urinary tract infection, no c/o dysuira but she has been grabbing at her lower abdomen intermittently over the past 24 hours. History of abdominal hernia with strangulation that required emergency surgery about 4 years ago. On exam she has high-pitched hyperactive bowel sounds and some guarding of her lower abdomen so she was admitted for imaging and lab evaluation. Hospital Course Hospital Course: Patient was admitted, evaluated by surgical service as noted. Consult appreciated. Found to have significant small bowel obstruction with evidence of volvulus. Please refer to operative notes for details of her operative procedure. She was transferred back to floor after surgery and did well. She did 2 days after surgery have rhonchi and congestion her chest with evidence of atelectasis. She was started on ceftriaxone and did well with this and as her NG tube was removed she was able to be placed back on CPAP which resolved her abnormal lung findings. Her diet was slowly advanced and she was also evaluated by physical therapy. Had no significant hematologic or electrolyte abnormalities on follow-up lab work. This morning she slept comfortably on CPAP, and was doing well with a full liquid diet. Plan will be to discharge her to [facility] [place] on her oral medications as noted, cautious full liquid diet over the weekend, on Sunday, March 04 she can be transitioned to low-fat soft mechanical diet if she has had no vomiting and has had good bowel movements over the weekend. Follow-up will be per our service at [facility] and with Dr. Wilson in 1 week. Please newly PT/OT evaluation for her chronic arthritis/fall risk issues with her Down syndrome, and please note she will need a BMP and CBC on Sunday, 04 March. Objective Vital signs: Temp Pulse Resp BP Pulse Ox 96.7 F L 55 L 18 96/47 99 03/01/18 04:00 03/01/18 04:30 03/01/18 04:00 03/01/18 04:00 03/01/18 04:00 Narrative: Patient is alert, pleasant, smiling. Had a good night sleep with CPAP. Heart rate regular. Lungs are clear, improved over a couple of days ago. Abdomen is soft, tenderness as expected around the surgical site. Deformity of her right shoulder from surgery as well as her multiple orthopedic deformities are noted with no changes. Down's facies and other physical exam features have unchanged. DS: Diagnosis - Discharge Diagnosis (1) Gastroenteritis Status: Resolved (2) Lower abdominal pain Status: Resolved (3) Down syndrome Status: Chronic (4) Small bowel volvulus Status: Resolved Discharge Plan - Patient Discharge Instructions ACTIVITY: Ambulate as tolerated, Up with assistance DIET: continue same diet (Full liquid diet, see discharge instructions) - Follow up Plan Follow up with: Jean Tidwell MD [Staff Physician] - 1 week Disposition: Xfer SNF Home Medications: Home Medications Medication Instructions Recorded Confirmed Type Donepezil HCl [Aricept 5mg] 10 mg PO DAILY 02/23/18 02/23/18 History Escitalopram Oxalate 20 mg PO DAILY 02/23/18 02/23/18 History Furosemide [Lasix 40mg tab] 40 mg PO DAILY 02/23/18 02/23/18 History Magnesium Oxide [Magnesium] 400 mg PO DAILY 02/23/18 02/24/18 History Mesalamine [Apriso] 0.375 gm PO DAILY 02/23/18 02/23/18 History Nystatin [Nystatin Topical Powder 30 gm TP BID 02/23/18 02/23/18 History 30GM] Potassium Chloride [Klor-con 20 20 meq PO BID 02/23/18 02/23/18 History mEq tablet] Memantine HCl [Memantine HCl ER] 14 mg PO DAILY 02/24/18 02/24/18 History Prescriptions/Medication Reconciliation: New Cefdinir [Omnicef 300mg Capsule] 300 mg PO BID #8 cap Continue Magnesium Oxide [Magnesium] 400 mg PO DAILY Nystatin [Nystatin Topical Powder 30GM] 30 gm TP BID Mesalamine [Apriso] 0.375 gm PO DAILY Escitalopram Oxalate 20 mg PO DAILY Memantine HCl [Memantine HCl ER] 14 mg PO DAILY Donepezil HCl [Aricept 5mg] 10 mg PO DAILY Discontinued Potassium Chloride [Klor-con 20 mEq tablet] 20 meq PO BID Furosemide [Lasix 40mg tab] 40 mg PO DAILY
--- NOTE | 2018-03-01 07:59 | Progress Note ---
Subjective Patient reports: feels better (POD6), flatus, bowel movement Exam Vital signs and Labs for Last 24 Hours: Temp Pulse Resp BP Pulse Ox 96.7 F L 55 L 18 96/47 99 03/01/18 04:00 03/01/18 04:30 03/01/18 04:00 03/01/18 04:00 03/01/18 04:00 I & O for Last 24 hours: Intake & Output 02/26/18 02/27/18 02/28/18 03/01/18 11:59 11:59 11:59 11:59 Intake Total 1250 / 1250 0 / 0 1749 / 1749 1374 / 1374 Output Total 750 / 750 500 / 500 1400 / 1400 Balance 500 / 500 0 / 0 1249 / 1249 -26 / -26 Weight 140 lb 3.001 oz - Constitutional no acute distress - *Routine Abdominal Exam Present: soft Comments: incision c/d/i Progress Note: A&P (1) Gastroenteritis Status: Resolved Current Visit: Yes (2) Lower abdominal pain Status: Resolved Current Visit: Yes (3) Down syndrome Status: Chronic Current Visit: Yes (4) Small bowel volvulus Status: Resolved Assessment and plan: improving s/p ex-lap with CRISTHIAN d/c to facility today RTC next week remove 1/2 of jessie slowly advance diet Current Visit: Yes
[2018-03-01 08:24] VITALS: BP 116/65
== END 2018-03-01 10:21 ==
LOC: 2ND → OBSVTOIN 11:31
PROVIDERS: ADMIT Internal Medicine Adolescent Medicine; ATTEND Internal Medicine Adolescent Medicine

== ENCOUNTER → 2018-07-16 11:10 | Outpatient (CLI) | payer MEDICARE, OTHER, MEDICAID, SELFPAY ==
[2018-07-16 13:29] LABS: Hemoglobin A1C 5.2 % (0.0-7.0)
[2018-07-16 14:49] LABS: Microscopic, Urine URINE MICROSCOPIC (MICROSCOPIC)
[2018-07-16 14:57] LABS: Alanine Aminotransferase 37 U/L (12-78); Albumin Level 3.2 gm/dL (3.4-5.0); Albumin/Globulin Ratio 0.9 (1.1-1.8); Alkaline Phosphatase 85 U/L (46-116); Anion Gap 12.4 mEq/L (5-15); Aspartate Amino Transferase 40 U/L (15-37); Bilirubin,Total 0.7 mg/dL (0.2-1.0); Blood Urea Nitrogen 16 mg/dL (7-18); Calcium 8.7 mg/dL (8.5-10.1); Carbon Dioxide 27 mmol/L (21.0-32.0); Chloride 107 mmol/L (98-107); Creatinine,Serum 0.69 mg/dL (0.55-1.02); Estimated Glomerular Filt Rate 87 ml/min (>60); Ferritin 118 ng/mL (8-388); Free T4 (Free Thyroxine) 1.08 ng/dl (0.76-1.46); GFR (African American) 105 ML/MIN (>60); Globulin 3.7 gm/dl (1.3-3.2); Glucose 83 mg/dL (74-106); Potassium 4.4 mmoL/L (3.5-5.1); Sodium 142 mmol/L (136-145); Thyroid Stimulating Hormone 0.96 uIU/ml (0.358-3.740); Total Protein,Serum 6.9 gm/dL (6.4-8.2)
[2018-07-16 15:05] LABS: Appearance,Urine CLEAR (Clear); Bilirubin,Urine Negative (Negative); Blood, Urine Negative (Negative); Color,Urine YELLOW (Yellow); Glucose,Urine (UA) Negative (Negative); Ketones,Urine 1+ (Negative); Leukocyte Esterase,Urine Negative (Negative); Nitrate,Urine Negative (Negative); PH,Urine 5.5 (5.0-8.5); Protein,Urine Negative (Negative); Specific Gravity, Urine >= 1.030 (1.005-1.030); Urobilinogen,Urine 0.2 EU/dl (0.2)
[2018-07-16 15:14] LABS: Bacteria,Urine Trace /lpf
[2018-07-17 07:16] LABS: Iron 64 ug/dL (27-159); Iron Saturation 25 % (15-55); Thyroid Peroxidase Antibodies 37 IU/mL (0-34); UIBC 197 ug/dL (131-425)
[2018-07-17 07:41] LABS: Triiodothyronine (T3) Free 2.4 pg/mL (2.0-4.4)
[2018-07-17 08:33] LABS: Ceruloplasmin 23.8 mg/dL (19.0-39.0)
[2018-07-17 15:19] LABS: Insulin Level Total 7.8 uIU/mL (2.6-24.9)
[2018-07-17 16:06] LABS: Estradiol 12.7 pg/mL (.); Progesterone 0.1 ng/mL (.)
[2018-07-17 16:08] LABS: Folate 14.3 ng/mL (>3.0)
[2018-07-17 16:09] LABS: Antinuclear Antibodies, IFA Negative (.); EBV Ab VCA, IgM <36.0 U/mL (0.0-35.9)
[2018-07-17 16:10] LABS: Vitamin B12 362 pg/mL (232-1245); Vitamin D 25 Hydroxy 19.8 ng/mL (30.0-100.0)
[2018-07-18 06:07] LABS: Thyroglobulin Level 2.9 IU/mL (0.0-0.9)
[2018-07-19 09:11] LABS: Magnesium,RBC 6.7 mg/dL (4.2-6.8)
[2018-07-19 09:11] LABS: Insulin Level Total 36.9 uIU/mL (2.6-24.9)
[2018-07-19 12:18] LABS: Immunoglobulin E, Total 23 IU/mL (0-100)
[2018-07-19 13:05] LABS: Testosterone, Total, LC/MS 5.2 ng/dL (.)
[2018-07-23 10:31] LABS: Triiodothyronine (T3) Reverse 23.3 ng/dL (9.2-24.1)
== END ==
PROVIDERS: PCP Internal Medicine Adolescent Medicine; Visit Provider Dietitian, Registered
DX: D89.89 Other specified disorders involving the immune mechanism, not elsewhere classified (principal); E11.65 Type 2 diabetes mellitus with hyperglycemia; E03.9 Hypothyroidism, unspecified; R79.0 Abnormal level of blood mineral; D50.9 Iron deficiency anemia, unspecified
CPT/HCPCS: 36415; 80053; 81001; 82390; 82525; 82607; 82626; 82652; 82670; 82728; 82746; 82785; 83036; 83525; 83540; 83550; 83735; 84144; 84403; 84439; 84443; 84481; 84482; 84550; 86038; 86141; 86376; 86663; 86664; 86665; 86800

== ENCOUNTER → 2018-08-03 14:10 | Outpatient (CLI) | payer MEDICARE, OTHER, MEDICAID, SELFPAY | LOC: LAB 14:10 → LAB.DROPOF 14:11 | PROVIDERS: Visit Provider Nurse Practitioner Family | DX: L03.032 Cellulitis of left toe (principal) | CPT/HCPCS: 87070; 87077; 87205 ==

== ENCOUNTER → 2019-08-26 17:51 | Outpatient (CLI) | payer OTHER, MEDICARE, MEDICAID, SELFPAY ==
[2019-08-26 17:55] LABS: Microscopic, Urine URINE MICROSCOPIC (MICROSCOPIC)
[2019-08-26 18:24] LABS: Appearance,Urine CLEAR (Clear); Blood, Urine 3+ (Negative); Color,Urine YELLOW (Yellow); Glucose,Urine (UA) Negative (Negative); Ketones,Urine Negative (Negative); Leukocyte Esterase,Urine 2+ (Negative); Nitrate,Urine POSITIVE (Negative); Protein,Urine 2+ (Negative); Specific Gravity, Urine 1.025 (1.005-1.030); Urobilinogen,Urine 0.2 EU/dl (0.2)
[2019-08-26 18:48] LABS: Bilirubin,Urine Negative (Negative)
[2019-08-26 19:16] LABS: Bacteria,Urine Trace /lpf; RBC,Urine 50-100 #/hpf (0-3)
== END ==
PROVIDERS: Visit Provider Internal Medicine Adolescent Medicine
DX: N39.0 Urinary tract infection, site not specified (principal)
CPT/HCPCS: 81001; 87086